=== PATIENT | male | born 1970 | race Caucasian/White ===

== ENCOUNTER 2024-08-16 17:24 | Inpatient (IN) | payer BC ==
[~2024-08-16] VITALS: Ht 170.2 cm; Wt 166.0 kg
[2024-08-16 18:51] VITALS: TEMP 99.6
[2024-08-16 19:45] LABS: BASOPHILS # (AUTO) 0.1 (0.0-0.1); BASOPHILS % 0.8 % (0.0-1.0); EOSINOPHILS # (AUTO) 0.3 (0.0-0.4); EOSINOPHILS % 2.5 % (0.0-6.0); HEMATOCRIT 49.6 % (38.2-49.6); HEMOGLOBIN 15.2 g/dL (14.0-18.0); MEAN CORPUSCULAR HGB CONC 30.6 g/dL (31-35); MEAN CORPUSCULAR VOLUME 94.5 fL (81-99); MONOCYTES # (AUTO) 0.7 (0.2-0.8); MONOCYTES % 5.5 % (4.4-11.3); NEUTROPHILS # (AUTO) 8.9 (2.1-6.9); NEUTROPHILS % 67.5 % (38.7-80.0); PLATELET COUNT 280 x10e3/uL (140-360); RED BLOOD COUNT 5.25 x10e6/uL (4.3-5.7); WHITE BLOOD COUNT 13.19 x10e3/uL (4.8-10.8)
[2024-08-16 20:00] VITALS: PULSE 100; RESP 24
[2024-08-16 20:10] LABS: ALBUMIN 3.2 g/dL (3.5-5.0); ALBUMIN/GLOBULIN RATIO 0.7 (0.8-2.0); ANION GAP 13.9 mmol/L (8-16); BILIRUBIN,TOTAL 0.4 mg/dL (0.2-1.2); CALCIUM 9.4 mg/dL (8.4-10.2); CREATININE, SERUM 0.83 mg/dL (0.72-1.25); POTASSIUM 3.9 mmol/L (3.5-5.1); TOTAL PROTEIN 7.8 g/dL (6.5-8.1)
[2024-08-16 20:21] LABS: INFLUENZA A AG NEGATIVE (NEGATIVE)
[2024-08-16 20:22] LABS: CORONAVIRUS COVID-19 AG NEGATIVE (NEGATIVE); INFLUENZA B AG NEGATIVE (NEGATIVE)
[2024-08-16] MEDS ORDERED: IOPAMIDOL 370 MG/ML 100 ML INFUS..BTL INJ ONE (20:24)
[2024-08-16 20:26] LABS: INR 0.94; PROTHROMBIN TIME 13.1 seconds (11.9-14.5)
[2024-08-16 20:27] LABS: PARTIAL THROMBOPLASTIN TIME 27.2 seconds (23.8-35.5)
[2024-08-16] MEDS ORDERED: ONDANSETRON HCL INJ 2MG/ML 2ML 2 MG/ML VIAL IV PRN (22:15)
[2024-08-16] MEDS ORDERED: SODIUM CHLORIDE FLUSH 10 ML SYR INJ PRN (22:15)
[2024-08-16] MEDS ORDERED: FUROSEMIDE INJ 10 MG/ML 4 ML VIAL ONE (23:42)
[2024-08-16] MEDS: FUROSEMIDE INJ 10 MG/ML 4 ML VIAL IV SCH (23:59)
[2024-08-17] VITALS (11 sets, daily range): BP systolic 105–140; BP diastolic 57–101; PULSE 86–105; RESP 18–22; TEMP 97.7–98.6; O2SAT 93–100
[2024-08-17] MEDS ORDERED: VITAMIN D3125 MCG (00:38)
[2024-08-17] MEDS ORDERED: METFORMIN HCL1000 MG PO (00:38)
[2024-08-17] MEDS ORDERED: VITAMIN D31250 MCG PO (00:38)
[2024-08-17 00:51] LABS: AMPHETAMINES SCREEN,URINE NEGATIVE (NEGATIVE); BENZODIAZEPINES SCREEN,URINE NEGATIVE (NEGATIVE); CANNABINOIDS SCREEN,URINE NEGATIVE (NEGATIVE); COCAINE SCREEN,URINE NEGATIVE (NEGATIVE); METHADONE SCREEN, URINE NEGATIVE (NEGATIVE); OPIATES SCREEN,URINE NEGATIVE (NEGATIVE); PHENCYCLIDINE SCREEN,URINE NEGATIVE (NEGATIVE)
[2024-08-17 00:52] LABS: BILIRUBIN,URINE NEGATIVE (NEGATIVE); CLARITY,URINE CLEAR (CLEAR); COLOR,URINE YELLOW (YELLOW); GLUCOSE, URINE NEGATIVE (NEGATIVE); KETONES,URINE NEGATIVE (NEGATIVE); LEUKOCYTE ESTERASE ,URINE NEGATIVE (NEGATIVE); NITRITE,URINE NEGATIVE (NEGATIVE); PH,URINE 7 (5 - 7); PROTEIN,URINE DIPSTICK 2+ (NEGATIVE); URINE UROBILINOGEN 0.2 mg/dL (0.2 - 1)
[2024-08-17 01:04] LABS: BACTERIA,URINE FEW /HPF; EPITHELIAL CELLS,URINE FEW /LPF; RBC,URINE 0-5 /HPF (0-5); WBC,URINE (MAN) 0-5 /HPF (0-5)
[2024-08-17] MEDS ORDERED: DIPHENHYDRAMINE HCL 25 MG CAP PO PRN (01:30)
[2024-08-17] MEDS ORDERED: BENZONATATE 100 MG CAP PO PRN (01:30)
[2024-08-17] MEDS ORDERED: DOCUSATE SODIUM 100 MG CAP PO PRN (01:30)
[2024-08-17] MEDS ORDERED: POTASSIUM CHLORIDE 20 MEQ TAB CR PO PRN (01:30)
[2024-08-17] MEDS ORDERED: ALBUTEROL/IPRATROPIUM 3 ML NEB NEB PRN (01:30)
[2024-08-17] MEDS ORDERED: MELATONIN 5 MG TABLET PO PRN (01:30)
[2024-08-17] MEDS ORDERED: SIMETHICONE 80 MG CHEW PO PRN (01:30)
[2024-08-17] MEDS ORDERED: DEXTROSE 50% SYRINGE 50 ML IV PRN (01:30)
[2024-08-17] MEDS ORDERED: ACETAMINOPHEN 325 MG TAB PO PRN (01:30)
[2024-08-17] MEDS ORDERED: HYDRALAZINE HCL 20 MG/ML VIAL IV PRN (01:30)
[2024-08-17] MEDS ORDERED: LIDOCAINE 4% PATCH TP PRN (01:30)
[2024-08-17] MEDS: METOLAZONE 5 MG TAB PO ONE (01:56)
[2024-08-17] MEDS: LOSARTAN POTASSIUM 100 MG TAB PO SCH (01:58)
[2024-08-17 09:08] LABS: BASOPHILS # (AUTO) 0.1 (0.0-0.1); BASOPHILS % 0.9 % (0.0-1.0); EOSINOPHILS # (AUTO) 0.5 (0.0-0.4); EOSINOPHILS % 3.6 % (0.0-6.0); HEMATOCRIT 48.3 % (38.2-49.6); LYMPHOCYTES # (AUTO) 2.7 (1.0-3.2); LYMPHOCYTES % 21.4 % (18.0-39.1); MEAN CORPUSCULAR HEMOGLOBIN 29.2 pg (28-32); MEAN CORPUSCULAR HGB CONC 31.1 g/dL (31-35); MEAN CORPUSCULAR VOLUME 94.2 fL (81-99); MONOCYTES # (AUTO) 0.9 (0.2-0.8); MONOCYTES % 7.1 % (4.4-11.3); NEUTROPHILS # (AUTO) 8.5 (2.1-6.9); NEUTROPHILS % 66.5 % (38.7-80.0); PLATELET COUNT 279 x10e3/uL (140-360); RED BLOOD COUNT 5.13 x10e6/uL (4.3-5.7); RED CELL DISTRIBUTION WIDTH 15.2 % (11.7-14.4); WHITE BLOOD COUNT 12.79 x10e3/uL (4.8-10.8)
[2024-08-17] MEDS: PANTOPRAZOLE SOD 40 MG TABEC PO SCH (09:09)
[2024-08-17 10:40] LABS: CHOL/HDL RATIO 5.3 (3.9-4.7); MAGNESIUM 1.7 MG/DL (1.3-2.1)
[2024-08-17 11:03] LABS: THYROID STIMULATING HORMONE 2.516 uIU/mL (0.350-4.940)
[2024-08-17 12:54] LABS: ALBUMIN 3.3 g/dL (3.5-5.0); ALBUMIN/GLOBULIN RATIO 0.7 (0.8-2.0); ANION GAP 21.2 mmol/L (8-16); BILIRUBIN,TOTAL 0.4 mg/dL (0.2-1.2); CALCIUM 9.7 mg/dL (8.4-10.2); CREATININE, SERUM 1.08 mg/dL (0.72-1.25); POTASSIUM 3.2 mmol/L (3.5-5.1); TOTAL PROTEIN 8.2 g/dL (6.5-8.1)
[2024-08-17 13:00] LABS: TROPONIN I 0.007 ng/mL (0-0.300)
[2024-08-17] MEDS: ENOXAPARIN SOD INJ 40 MG/0.4 ML SYR SC SCH (17:00)
[2024-08-17] MEDS: POTASSIUM CHLORIDE 20 MEQ TAB CR PO ONE (17:24)
[2024-08-17] MEDS: SPIRONOLACTONE 25 MG TAB PO SCH (17:26)
[2024-08-17 18:02] LABS: ANION GAP 16.2 mmol/L (8-16); CALCIUM 9.3 mg/dL (8.4-10.2); CREATININE, SERUM 1.33 mg/dL (0.72-1.25)
[2024-08-17 18:03] LABS: POTASSIUM 3.2 mmol/L (3.5-5.1)
[2024-08-17 18:10] LABS: TROPONIN I 0.005 ng/mL (0-0.300)
[2024-08-17] MEDS: FUROSEMIDE INJ 10 MG/ML 4 ML VIAL IV SCH (21:05)
[2024-08-18] VITALS (8 sets, daily range): BP systolic 99–129; BP diastolic 63–83; PULSE 85–105; RESP 18–22; TEMP 97.5–98.8; O2SAT 95–98
[2024-08-18 05:55] LABS: BASOPHILS # (AUTO) 0.1 (0.0-0.1); BASOPHILS % 0.6 % (0.0-1.0); EOSINOPHILS # (AUTO) 0.4 (0.0-0.4); HEMATOCRIT 49.7 % (38.2-49.6); HEMOGLOBIN 15.5 g/dL (14.0-18.0); LYMPHOCYTES # (AUTO) 2.9 (1.0-3.2); LYMPHOCYTES % 20.6 % (18.0-39.1); MEAN CORPUSCULAR HGB CONC 31.2 g/dL (31-35); MEAN CORPUSCULAR VOLUME 92.9 fL (81-99); MONOCYTES % 6.9 % (4.4-11.3); NEUTROPHILS # (AUTO) 9.5 (2.1-6.9); NEUTROPHILS % 68.6 % (38.7-80.0); PLATELET COUNT 284 x10e3/uL (140-360); RED BLOOD COUNT 5.35 x10e6/uL (4.3-5.7); RED CELL DISTRIBUTION WIDTH 15.3 % (11.7-14.4)
[2024-08-18 06:21] LABS: CALCIUM 9.2 mg/dL (8.4-10.2); CREATININE, SERUM 1.56 mg/dL (0.72-1.25)
[2024-08-18] MEDS: ALBUTEROL/IPRATROPIUM 3 ML NEB NEB SCH (07:00)
[2024-08-18] MEDS ORDERED: LOSARTAN POTASSIUM 100 MG TAB PO SCH (16:15)
[2024-08-18] MEDS ORDERED: GUAIFENESIN/CODEINE 5 ML LIQD PO PRN (16:30)
[2024-08-18] MEDS: POTASSIUM CHLORIDE 20 MEQ TAB CR PO ONE (17:21)
[2024-08-18] MEDS: SODIUM CHLORIDE 0.9% 250ML 250 ML ONE (17:23)
[2024-08-18] MEDS: FUROSEMIDE INJ 10 MG/ML 4 ML VIAL IV SCH (22:04)
[2024-08-18] MEDS: ATORVASTATIN 40 MG TAB PO SCH (22:04)
[2024-08-19] VITALS (11 sets, daily range): BP systolic 105–145; BP diastolic 68–96; PULSE 86–109; RESP 20–22; TEMP 97.1–98.4; O2SAT 92–99
[2024-08-19 05:51] LABS: BASOPHILS # (AUTO) 0.1 (0.0-0.1); BASOPHILS % 0.8 % (0.0-1.0); EOSINOPHILS # (AUTO) 0.3 (0.0-0.4); EOSINOPHILS % 2.3 % (0.0-6.0); HEMATOCRIT 48.1 % (38.2-49.6); HEMOGLOBIN 15.9 g/dL (14.0-18.0); LYMPHOCYTES % 23.3 % (18.0-39.1); MEAN CORPUSCULAR HEMOGLOBIN 28.9 pg (28-32); MEAN CORPUSCULAR HGB CONC 33.1 g/dL (31-35); MEAN CORPUSCULAR VOLUME 87.5 fL (81-99); MONOCYTES # (AUTO) 0.9 (0.2-0.8); MONOCYTES % 7.2 % (4.4-11.3); NEUTROPHILS # (AUTO) 8.4 (2.1-6.9); NEUTROPHILS % 65.8 % (38.7-80.0); PLATELET COUNT 303 x10e3/uL (140-360); RED CELL DISTRIBUTION WIDTH 14.9 % (11.7-14.4); WHITE BLOOD COUNT 12.71 x10e3/uL (4.8-10.8)
[2024-08-19 06:20] LABS: ANION GAP 17.1 mmol/L (8-16); CALCIUM 9.4 mg/dL (8.4-10.2); CREATININE, SERUM 1.14 mg/dL (0.72-1.25)
[2024-08-19 06:21] LABS: POTASSIUM 3.1 mmol/L (3.5-5.1)
[2024-08-19] MEDS: POTASSIUM CHLORIDE 20 MEQ TAB CR PO STA (16:33)
[2024-08-19] MEDS: POTASSIUM CHLORIDE 20 MEQ TAB CR PO ONE (18:12)
[2024-08-20] VITALS (9 sets, daily range): BP systolic 118–150; BP diastolic 64–98; PULSE 96–108; RESP 16–23; TEMP 97.7–98.2; O2SAT 92–98
[2024-08-20 06:12] LABS: ANION GAP 16.1 mmol/L (8-16); CALCIUM 9.3 mg/dL (8.4-10.2); CREATININE, SERUM 0.97 mg/dL (0.72-1.25)
[2024-08-20 06:32] LABS: POTASSIUM 3.1 mmol/L (3.5-5.1)
[2024-08-20] MEDS: POTASSIUM CHLORIDE 20 MEQ TAB CR PO ONE ×2 (09:32→16:25)
[2024-08-20] MEDS ORDERED: ONDANSETRON HCL 4 MG ORAL DISINTEGRATING TAB PO PRN (17:00)
[2024-08-20 18:33] LABS: CREATININE,URINE RANDOM 80.48 mg/dL (63-166); TOTAL PROTEIN, URINE 13.5 mg/dL (1-14)
[2024-08-20 18:38] LABS: PROTEIN/CREATININE RATIO,URINE 0.17
[2024-08-21] MEDS ORDERED: AZITHROMYCIN 250 MG TAB PO SCH (09:00)
== END 2024-08-20 18:57 | disposition home or self-care (01) | DRG 189 ==
LOC: ER 18:53 → ERHOLD 22:16 → MED/SURG2 08-17 00:13 → OBSVTOIN 08-18 15:32
PROVIDERS: ADMIT Internal Medicine; ATTEND Internal Medicine
DX: J81.1 Chronic pulmonary edema (principal); J96.01 Acute respiratory failure with hypoxia; I11.0 Hypertensive heart disease with heart failure; I50.33 Acute on chronic diastolic (congestive) heart failure; J18.9 Pneumonia, unspecified organism; N17.9 Acute kidney failure, unspecified; Z68.43 Body mass index [BMI] 50.0-59.9, adult; E66.01 Morbid (severe) obesity due to excess calories; E88.09 Other disorders of plasma-protein metabolism, not elsewhere classified; R80.9 Proteinuria, unspecified; E78.5 Hyperlipidemia, unspecified; G47.33 Obstructive sleep apnea (adult) (pediatric); E87.70 Fluid overload, unspecified; J44.9 Chronic obstructive pulmonary disease, unspecified; Z11.52 Encounter for screening for COVID-19; Z88.8 Allergy status to other drugs, medicaments and biological substances; Z88.1 Allergy status to other antibiotic agents; F17.210 Nicotine dependence, cigarettes, uncomplicated; Z82.49 Family history of ischemic heart disease and other diseases of the circulatory system
CPT/HCPCS: 36415; 71045; 71046; 71260; 80048; 80053; 80061; 80307; 81001; 81050; 82043; 82550; 82570; 82575; 82948; 83036; 83605; 83735; 83880; 84132; 84156; 84443; 84484; 85025; 85379; 85610; 85730; 87040; 87086; 93005; 93306; 93970; 94640; 94660; 94799; 99284; G0378; J0696; J1650; J1940; J7050; Q9967